=== PATIENT | male | born 1990 | race Two or more races ===

== ENCOUNTER 2018-01-04 22:57 | Emergency (ER) | payer SELFPAY ==
[~2018-01-04] VITALS: Ht 177.8 cm; Wt 68.5 kg
[2018-01-04 23:38] VITALS: BP 144/75
[2018-01-05] MEDS ORDERED: LIDOCAINE WITH 8.4% SOD BICARB 3 ML DISP.SYRIN. ONE (00:30)
[2018-01-05] MEDS ORDERED: LIDOCAINE WITH 8.4% SOD BICARB 3 ML DISP.SYRIN. INJ ONE (01:00)
[2018-01-05] MEDS ORDERED: MUPI22OI2 TP (01:06)
[2018-01-05] MEDS ORDERED: CEPH500C PO (01:06)
--- NOTE | 2018-01-05 01:07 | PHYS DOC ---
Past Medical History Past Medical History: No Pertinent History Past Surgical History: No Surgical History Alcohol Use: None Drug Use: None Adult General Chief Complaint Chief Complaint: INSECT BITE HPI HPI Patient is a 27 year old male who presents to the ER complaints of a red, tender, area to left anterior lower leg for the last 3 days that has drained some yellow bloody pus. He reports concern that he was bit by something. 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 He denies any itching, known injury, or insect sting to the area. He denies any fever, nausea, vomiting, numbness, or tingling. He is unsure of when his last tetanus immunization was. He denies pain unless the affected area is touched. Review of Systems Review of Systems Constitutional: Denies fever or chills [] GI: Denies nausea, vomiting [] Musculoskeletal: Denies back pain or joint pain, reports anterior left lower leg tenderness [] Integument: Reports warm, red, tender area with central open area that is draining pus to LLE for the last 3 days Neurologic: Denies focal weakness or sensory changes [] All other systems were reviewed and found to be within normal limits, except as documented in this note. Current Medications Current Medications Current Medications Medications (Trade) Dose Ordered Sig/Rachel Start Time Stop Time Status Last Admin Dose Admin Diphtheria/ Tetanus/Acell Pertussis (Boostrix) 0.5 ml ONCE ONCE 01/05/18 01:30 01/05/18 01:31 DC 01/05/18 01:28 0.5 ML Lidocaine/Sodium Bicarbonate (Buffered Lidocaine 1%) 3 ml STK-MED ONCE 01/05/18 00:30 01/05/18 00:33 DC Neomycin/ Polymyxin/ Bacitracin (Triple Antibiotic Ointment) 1 pkt 1X ONCE 01/05/18 01:30 01/05/18 01:31 DC 01/05/18 01:27 1 PKT Allergies Allergies Allergies Coded Allergies Type Severity Reaction Last Updated Verified No Known Drug Allergies 08/01/15 No Physical Exam Physical Exam Constitutional: Well developed, well nourished, no acute distress, non-toxic appearance. [] HENT: Normocephalic, atraumatic, bilateral external ears normal, nose normal. [] Eyes: conjunctiva normal, no discharge. [] Skin: Warm, dry, cap refill less than 2 seconds; cutaneous abscess with surrounding erythema measuring 3 cm diameter with 0.5 cm centralized open area that is draining yellow bloody pus noted to anterior left lower extremity below knee Extremities: No cyanosis, no clubbing, ROM intact, no edema; anterior lower left leg tender to palpation at site of abscess no body tenderness or deformity [] Neurologic: Alert and oriented X 3, normal motor function, normal sensory function, no focal deficits noted. [] Psychologic: Affect normal, judgement normal, mood normal. [] Current Patient Data Vital Signs Vital Signs Date Time Temp Pulse Resp B/P (MAP) Pulse Ox O2 Delivery O2 Flow Rate FiO2 01/04/18 23:38 98.5 97 18 99 Room Air 98.5 EKG EKG [] Radiology/Procedures Radiology/Procedures The cutaneous abscess of the LLE was drained after 3 ml of buffered 1% lidocaine was injected for local anesthesia. Pressure was applied and a small amount of bloody pus was expressed from the area. The site was then irrigated with 40 m of NS. Pt tolerated procedure well. Antibiotic ointment and a bandage was then applied by the nurse. [] Course & Med Decision Making Course & Med Decision Making Pertinent Labs and Imaging studies reviewed. (See chart for details) Dx: cutaneous abscess The affected area was drained as described in procedures. Prescriptions were written for keflex and mupirocin. PT was encouraged to change bandage and apply antibiotic ointment 3x a day. May apply warm compress to help with drainage. Pt and his significant other verbalized an understanding of d/c instructions, prescriptions, and were in agreement with POC. [] Staff Physician Addendum: I was working in the ER during the course of this patient's visit. I was available for consultation as needed, but I was not directly involved in the care of this patient. Dragon Disclaimer Dragon Disclaimer This electronic medical record was generated, in whole or in part, using a voice recognition dictation system. Departure Departure Impression: Primary Impression: Cutaneous abscess of left lower extremity Disposition: 01 HOME, SELF-CARE Condition: STABLE Referrals: NO PCP (PCP) Patient Instructions: Abscess, [id number] Additional Instructions: Fill the prescriptions and use as directed. Keep area covered with bandage while working. Return to the ER if symptoms worsen or fever develops. Scripts Mupirocin (MUPIROCIN OINTMENT) 22 Gm Oint...g. 1 RADHA TP TID for WOUND CARE for 7 Days, #1 TUBE Prov: DESI YOUNG APRN 01/05/18 Cephalexin (CEPHALEXIN) 500 Mg Capsule 1 CAP PO QID for 7 Days, #28 CAP 0 Refills Prov: DESI YOUNG APRN 01/05/18 DESI YOUNG APRN Jan 05, 2018 01:07 DOUG PAIZ MD Jan 07, 2018 06:13
[2018-01-05] MEDS ORDERED: DIPHTH,PERTUSS(ACELL),TET TOX 0.5 ML DISP.SYRIN. VAX IM ONE (01:30)
[2018-01-05] MEDS ORDERED: NEOMY/BACITR/POLYMYXIN OINT PACKET. TP ONE (01:30)
== END 2018-01-05 01:32 | disposition home or self-care (01) ==
LOC: ER 22:57
DX: L02.416 Cutaneous abscess of left lower limb (principal)
CPT/HCPCS: 90471; 90715; 96372; 99284

== ENCOUNTER 2019-05-20 15:18 | Emergency (ER) | payer SELFPAY ==
[~2019-05-20] VITALS: Ht 165.1 cm; Wt 80.0 kg
[~2019-05-20 15:18] MED LIST: CEPH500C PO; MUPI22OI2 TP
[2019-05-20 15:54] VITALS: BP 135/73
--- NOTE | 2019-05-20 16:22 | PHYS DOC ---
Past Medical History Past Medical History: No Pertinent History Past Surgical History: No Surgical History Smoking Status: Never Smoker Alcohol Use: None Drug Use: None Adult General Chief Complaint Chief Complaint: DENTAL PROBLEM HPI HPI Patient is a 29 year old male who presents with dental pain has been ongoing for 2 days. The patient states she's having pain to the right lower portion of his mouth. He rates his pain as 10 out of 10 in severity and sharp. Denies any other symptoms. Complete ROS were reviewed and found to be within normal limits, except as documented in the [facility] Allergies Allergies Allergies Coded Allergies Type Severity Reaction Last Updated Verified No Known Drug Allergies 08/01/15 No Physical Exam Physical Exam Constitutional: Well developed, well nourished, no acute distress, non-toxic appearance. [] HENT: Normocephalic, atraumatic, bilateral external ears normal, oropharynx moist, no oral exudates, nose normal. Cavities to teeth 30-32. Neurologic: Alert and oriented X 3, normal motor function, normal sensory function, no focal deficits noted. [] Psychologic: Affect normal, judgement normal, mood normal. [] Current Patient Data Vital Signs Vital Signs Date Time Temp Pulse Resp B/P (MAP) Pulse Ox O2 Delivery O2 Flow Rate FiO2 05/20/19 15:54 99.8 63 16 135/73 (93) 100 Room Air 99.8 EKG EKG [] Radiology/Procedures Radiology/Procedures [] Course & Med Decision Making Course & Med Decision Making Pertinent Labs and Imaging studies reviewed. (See chart for details) Discussed with patient at home interventions. Also discussed how to obtain a dentist. A medical screening exam was performed on this patient and the patient does not appear to be having a medical emergency. His symptoms are not of sufficient severity and within reasonable medical probability it is unlikely the absence of immediate medical attention would result in placing the health of the individual (or, with respect to a woman, the health of the woman or her unborn child) in serious jeopardy, serious impairment to bodily functions, or serious dysfunction of any bodily organ or part. If , the patient is not in labor Dragon Disclaimer Dragon Disclaimer This electronic medical record was generated, in whole or in part, using a voice recognition dictation system. Departure Departure Impression: Primary Impression: Dentalgia Disposition: 01 HOME, SELF-CARE Condition: STABLE Referrals: NO PCP (PCP) Patient Instructions: Dental Pain Additional Instructions: Thank you for visiting [facility]. We appreciate you trusting us with your care. If any additional problems come up don't hesitate to return to visit us. Please follow up with your primary care provider so they can plan additional care if needed and know about the problem that you had. If symptoms worsen come back to the Emergency Department. Any concerning symptoms that start such as chest pain, shortness of air, weakness or numbness on one side of the body, running high fevers or any other concerning symptoms return to the ER. ANGELITO GARCIA APRN May 20, 2019 16:22
== END 2019-05-20 16:00 | disposition home or self-care (01) ==
LOC: ER 15:18
DX: K08.89 Other specified disorders of teeth and supporting structures (principal)
CPT/HCPCS: 99281